=== PATIENT | male | born 1980 | race Caucasian/White ===

== ENCOUNTER 2017-06-07 08:09 | Emergency (ER) | payer MEDICAID ==
[~2017-06-07] VITALS: Ht 190.5 cm; Wt 147.0 kg
[~2017-06-07 08:09] MED LIST: ALLO100T PO; FAMO-1 PO; NAPR-56 PO
[2017-06-07 09:37] VITALS: BP 137/84
== END 2017-06-07 09:39 | disposition home or self-care (01) ==
LOC: ER 08:10
DX: M25.471 Effusion, right ankle (principal); M25.571 Pain in right ankle and joints of right foot; G62.9 Polyneuropathy, unspecified; I10 Essential (primary) hypertension; M19.90 Unspecified osteoarthritis, unspecified site; M10.9 Gout, unspecified; F12.10 Cannabis abuse, uncomplicated; F17.200 Nicotine dependence, unspecified, uncomplicated; Z88.5 Allergy status to narcotic agent; Z79.899 Other long term (current) drug therapy
CPT/HCPCS: 73610; 99284

== ENCOUNTER 2019-05-12 19:14 | Emergency (ER) | payer MEDICAID ==
[~2019-05-12] VITALS: Ht 190.5 cm; Wt 150.0 kg
[2019-05-12 20:14] LABS: BASOPHILS % (AUTO) 0.3 % (0-1); EOSINOPHILS # (AUTO) 0.4 X10'3 (0-0.9); EOSINOPHILS % (AUTO) 2.9 % (0-6); HEMATOCRIT 44.6 % (42.0-52.0); HEMOGLOBIN 15.6 g/dl (14.0-17.9); LYMPHOCYTES # (AUTO) 3.6 X10'3 (1.1-4.8); LYMPHOCYTES % (AUTO) 25.3 % (21-51); MEAN CORPUSCULAR HEMOGLOBIN 33.3 PG (27.0-31.0); MEAN PLATELET VOLUME 8.4 FL (7.4-10.4); MONOCYTES % (AUTO) 7.2 % (2-12); NEUTROPHILS # (AUTO) 9.2 X10'3 (1.8-7.7); NEUTROPHILS % (AUTO) 64.3 % (42-75); PLATELET COUNT 350 X10'3 (140-440); RED CELL DISTRIBUTION WIDTH 13.3 % (11.5-14.5); WHITE BLOOD COUNT 14.3 X10'3 (4.5-11.0)
[2019-05-12 20:35] LABS: ALANINE AMINOTRANSFERASE 29 U/L (12-78); ALBUMIN 3.7 G/DL (3.4-5.0); ALBUMIN/GLOBULIN RATIO 0.9 (1.1-1.5); ALKALINE PHOSPHATASE 57 IU/L (46-116); ANION GAP 5 (8-16); ASPARTATE AMINO TRANSFERASE 14 U/L (10-37); BILIRUBIN,TOTAL 0.5 MG/DL (0.1-1.0); BLOOD UREA NITROGEN 12 MG/DL (7-18); CALCIUM 8.9 MG/DL (8.5-10.1); CHLORIDE 106 MMOL/L (99-107); CREATININE 1.33 MG/DL (0.60-1.10); GLUCOSE 113 MG/DL (70-104); POTASSIUM 3.4 MMOL/L (3.5-5.1); SODIUM 141 MMOL/L (135-145); TOTAL CARBON DIOXIDE 29.7 MMOL/L (24-32); TOTAL PROTEIN 7.6 G/DL (6.4-8.2); eGFR 60 ML/MIN
[2019-05-12] MEDS ORDERED: azithromycin 250mg tablet PO ONE (22:20)
[2019-05-12] MEDS ORDERED: ALBU8.5H8 IH (22:20)
[2019-05-12] MEDS ORDERED: ibuprofen tablet 400 MG TABLET PO ONE (22:20)
[2019-05-12] MEDS ORDERED: AZIT250T PO (22:20)
[2019-05-12 22:36] VITALS: BP 145/79
== END 2019-05-12 22:37 | disposition home or self-care (01) ==
LOC: ER 19:17
DX: R07.89 Other chest pain (principal); R05 Cough; G62.9 Polyneuropathy, unspecified; I10 Essential (primary) hypertension; M19.90 Unspecified osteoarthritis, unspecified site; F41.9 Anxiety disorder, unspecified; F17.200 Nicotine dependence, unspecified, uncomplicated; F12.90 Cannabis use, unspecified, uncomplicated; F10.99 Alcohol use, unspecified with unspecified alcohol-induced disorder; Z88.5 Allergy status to narcotic agent; Z79.899 Other long term (current) drug therapy; Y90.9 Presence of alcohol in blood, level not specified
CPT/HCPCS: 36415; 71045; 80053; 84484; 85025; 93005; 99284

== ENCOUNTER 2019-07-22 13:40 | Inpatient (IN) | payer MEDICAID ==
[~2019-07-22] VITALS: Ht 188 cm; Wt 147.7 kg
[~2019-07-22 13:40] MED LIST changes: +ALBU8.5H8 IH
[2019-07-22] MEDS ORDERED: ringers solution, lactated 1000ml IV soln IV ONE (15:30)
[2019-07-22] MEDS ORDERED: CefTRIAXone/D5W-Rocephin 1gm 50 ML IV ONE (15:30)
[2019-07-22] MEDS ORDERED: vancomycin/NS 1 GM ADD-VANTAGE 250 ML IV ONE (15:30)
[2019-07-22] MEDS ORDERED: ketorolac trometh. 30mg/ml inj. IV ONE (15:35)
[2019-07-22 16:02] LABS: BASOPHILS # (AUTO) 0.1 X10'3 (0-0.2); BASOPHILS % (AUTO) 0.4 % (0-1); EOSINOPHILS % (AUTO) 0.1 % (0-6); HEMATOCRIT 40.2 % (42.0-52.0); HEMOGLOBIN 13.8 g/dl (14.0-17.9); LYMPHOCYTES # (AUTO) 1.3 X10'3 (1.1-4.8); LYMPHOCYTES % (AUTO) 8.5 % (21-51); MEAN CORPUSCULAR HEMOGLOBIN 31.7 PG (27.0-31.0); MEAN CORPUSCULAR HGB CONC 34.4 g/dL (33.0-36.5); MEAN CORPUSCULAR VOLUME 92.1 FL (78-98); MEAN PLATELET VOLUME 8.7 FL (7.4-10.4); MONOCYTES # (AUTO) 1.5 X10'3 (0-0.9); MONOCYTES % (AUTO) 9.5 % (2-12); NEUTROPHILS # (AUTO) 12.9 X10'3 (1.8-7.7); NEUTROPHILS % (AUTO) 81.5 % (42-75); PLATELET COUNT 389 X10'3 (140-440); RED BLOOD COUNT 4.36 X10'6 (4.70-6.10); RED CELL DISTRIBUTION WIDTH 14.8 % (11.5-14.5); WHITE BLOOD COUNT 15.8 X10'3 (4.5-11.0)
[2019-07-22 16:29] LABS: ALANINE AMINOTRANSFERASE 14 U/L (12-78); ALBUMIN 3.2 G/DL (3.4-5.0); ALBUMIN/GLOBULIN RATIO 0.6 (1.1-1.5); ALKALINE PHOSPHATASE 62 IU/L (46-116); ANION GAP 11 (8-16); ASPARTATE AMINO TRANSFERASE 18 U/L (10-37); BILIRUBIN,TOTAL 0.8 MG/DL (0.1-1.0); BLOOD UREA NITROGEN 15 MG/DL (7-18); BUN/CREATININE RATIO 12.3 (5.4-32.0); CALCIUM 9.8 MG/DL (8.5-10.1); CHLORIDE 102 MMOL/L (99-107); CREATINE KINASE 252 U/L (39-308); CREATININE 1.22 MG/DL (0.60-1.10); GLUCOSE 111 MG/DL (70-104); MAGNESIUM 1.7 MG/DL (1.5-2.4); POTASSIUM 3.7 MMOL/L (3.5-5.1); SODIUM 135 MMOL/L (135-145); TOTAL CARBON DIOXIDE 21.7 MMOL/L (24-32); TOTAL PROTEIN 8.4 G/DL (6.4-8.2); eGFR 66 ML/MIN
[2019-07-22 18:36] LABS: CLARITY,URINE CLEAR (Clear); COLOR,URINE YELLOW (Yellow); GLUCOSE, URINE NEGATIVE (Neg); KETONES,URINE 15 mg/dl (Neg); LEUKOCYTE ESTERASE ,URINE NEGATIVE (Neg); NITRITES, URINE NEGATIVE (Neg); OCCULT BLOOD,URINE NEGATIVE (Neg); PH,URINE 7.5 (4.8-8.0); PROTEIN,URINE TRACE mg/dl (Neg)
[2019-07-22 18:51] LABS: UA COLLECTION TYPE VOIDED
[2019-07-22 18:53] LABS: WBC,URINE 0-4 /HPF (0-4)
[2019-07-22 18:54] LABS: BACTERIA,URINE FEW /HPF (Neg); MUCUS STRANDS MODERATE /LPF (Neg); SQUAMOUS EPITHELIAL CELL,UR FEW /LPF (FEW)
[2019-07-22] MEDS ORDERED: mag hydrox/Alum hydrox/simeth 30ml oral suspension PO PRN (21:15)
[2019-07-22] MEDS ORDERED: magnesium hydroxide 30ml (MOM) UD suspension PO PRN (21:15)
[2019-07-22] MEDS ORDERED: methylPREDNISolone sod succ/PF 40mg inj. IV ONE (21:15)
[2019-07-22] MEDS ORDERED: ondansetron/PF 4mg/2ml inj IV PRN (21:15)
[2019-07-22] MEDS ORDERED: acetaminophen 325mg tablet PO PRN (21:15)
[2019-07-22] MEDS ORDERED: famotidine 20mg tablet PO ONE (21:20)
[2019-07-22] MEDS ORDERED: SULF500T59 PO (21:25)
[2019-07-22] MEDS ORDERED: PRE5T PO (21:25)
--- NOTE | 2019-07-22 23:10 | NUR ---
PT ARRIVED TO ROOM 4024B FROM ER. PT TRANSFERRED HIMSELF TO BED. VSS. PT HAS BEEN ORIENTED TO THE ROOM. RECEIVED REPORT FROM EDMUNDO SIFUENTES PRIOR TO PT'S ARRIVAL.
[2019-07-22 23:15] VITALS: BP 150/67
[2019-07-23 06:00] VITALS: BP 148/83
[2019-07-23 06:16] LABS: BASOPHILS % (AUTO) 0.2 % (0-1); EOSINOPHILS % (AUTO) 0 % (0-6); HEMATOCRIT 40.6 % (42.0-52.0); HEMOGLOBIN 13.7 g/dl (14.0-17.9); LYMPHOCYTES # (AUTO) 0.7 X10'3 (1.1-4.8); LYMPHOCYTES % (AUTO) 7.1 % (21-51); MEAN CORPUSCULAR HEMOGLOBIN 31.6 PG (27.0-31.0); MEAN CORPUSCULAR HGB CONC 33.7 g/dL (33.0-36.5); MEAN CORPUSCULAR VOLUME 93.9 FL (78-98); MEAN PLATELET VOLUME 8.7 FL (7.4-10.4); MONOCYTES # (AUTO) 0.4 X10'3 (0-0.9); MONOCYTES % (AUTO) 4.3 % (2-12); NEUTROPHILS # (AUTO) 8.2 X10'3 (1.8-7.7); NEUTROPHILS % (AUTO) 88.4 % (42-75); PLATELET COUNT 403 X10'3 (140-440); RED BLOOD COUNT 4.32 X10'6 (4.70-6.10); WHITE BLOOD COUNT 9.3 X10'3 (4.5-11.0)
[2019-07-23 06:24] LABS: ALANINE AMINOTRANSFERASE 14 U/L (12-78); ALBUMIN 2.9 G/DL (3.4-5.0); ALBUMIN/GLOBULIN RATIO 0.5 (1.1-1.5); ALKALINE PHOSPHATASE 65 IU/L (46-116); ANION GAP 8 (8-16); ASPARTATE AMINO TRANSFERASE 22 U/L (10-37); BILIRUBIN,TOTAL 0.5 MG/DL (0.1-1.0); BLOOD UREA NITROGEN 17 MG/DL (7-18); BUN/CREATININE RATIO 12.6 (5.4-32.0); CALCIUM 9.2 MG/DL (8.5-10.1); CHLORIDE 104 MMOL/L (99-107); CREATININE 1.35 MG/DL (0.60-1.10); GLUCOSE 150 MG/DL (70-104); POTASSIUM 4.1 MMOL/L (3.5-5.1); SODIUM 139 MMOL/L (135-145); TOTAL CARBON DIOXIDE 27.5 MMOL/L (24-32); TOTAL PROTEIN 8.2 G/DL (6.4-8.2); eGFR 59 ML/MIN
[2019-07-23] MEDS: CefTRIAXone/D5W-Rocephin 1gm 50 ML IV SCH (08:21)
[2019-07-23] MEDS: prednisone 10mg tablet PO SCH (08:21)
[2019-07-23] MEDS: heparin, porcine 5000 units/ml vial SQ SCH ×2 (08:23→19:21)
[2019-07-23 10:00] VITALS: BP 131/80
[2019-07-23] MEDS ORDERED: HYDROcodone/acetaminophen 10/325mg tab PO PRN (12:45)
[2019-07-23 14:16] LABS: APPEARANCE,SYNOVIAL FLUID CLOUDY; COLOR,SYNOVIAL FLUID YELLOW; CRYSTAL ID, SYN FLD URIC ACID; SYN RBC 1500 /CU MM (0); SYN WBC 33000 /CU MM (0-200); SYNOVIAL FLUID CRYSTALS QT MODERATE
[2019-07-23 18:00] VITALS: BP 137/72
[2019-07-23] MEDS: HYDROcodone/acetaminophen 10/325mg tab PO PRN ×2 (19:22→23:56)
[2019-07-23 22:00] VITALS: BP 121/66
[2019-07-23] MEDS ORDERED: VANCOMYCIN LEVEL IV ONE (23:30)
--- NOTE | 2019-07-24 00:27 | NUR ---
Notified pharmacy of the patient's vancomycin level (19.3) and was told to running the antibiotic.
[2019-07-24 06:00] VITALS: BP 116/65
[2019-07-24 06:19] LABS: BASOPHILS # (AUTO) 0.1 X10'3 (0-0.2); BASOPHILS % (AUTO) 0.6 % (0-1); EOSINOPHILS # (AUTO) 0.1 X10'3 (0-0.9); EOSINOPHILS % (AUTO) 1.5 % (0-6); HEMATOCRIT 38.1 % (42.0-52.0); HEMOGLOBIN 12.8 g/dl (14.0-17.9); LYMPHOCYTES # (AUTO) 2.9 X10'3 (1.1-4.8); LYMPHOCYTES % (AUTO) 30.2 % (21-51); MEAN CORPUSCULAR HEMOGLOBIN 31.6 PG (27.0-31.0); MEAN CORPUSCULAR HGB CONC 33.8 g/dL (33.0-36.5); MEAN CORPUSCULAR VOLUME 93.6 FL (78-98); MEAN PLATELET VOLUME 8.6 FL (7.4-10.4); MONOCYTES % (AUTO) 10.4 % (2-12); NEUTROPHILS # (AUTO) 5.5 X10'3 (1.8-7.7); NEUTROPHILS % (AUTO) 57.3 % (42-75); PLATELET COUNT 396 X10'3 (140-440); RED BLOOD COUNT 4.06 X10'6 (4.70-6.10); RED CELL DISTRIBUTION WIDTH 15.1 % (11.5-14.5); WHITE BLOOD COUNT 9.7 X10'3 (4.5-11.0)
[2019-07-24 06:26] LABS: ALANINE AMINOTRANSFERASE 24 U/L (12-78); ALBUMIN 2.6 G/DL (3.4-5.0); ALBUMIN/GLOBULIN RATIO 0.6 (1.1-1.5); ALKALINE PHOSPHATASE 58 IU/L (46-116); ANION GAP 8 (8-16); ASPARTATE AMINO TRANSFERASE 25 U/L (10-37); BILIRUBIN,TOTAL 0.1 MG/DL (0.1-1.0); BLOOD UREA NITROGEN 21 MG/DL (7-18); BUN/CREATININE RATIO 15.9 (5.4-32.0); CALCIUM 8.8 MG/DL (8.5-10.1); CHLORIDE 109 MMOL/L (99-107); CREATININE 1.32 MG/DL (0.60-1.10); GLUCOSE 116 MG/DL (70-104); POTASSIUM 3.7 MMOL/L (3.5-5.1); SODIUM 143 MMOL/L (135-145); TOTAL PROTEIN 7.2 G/DL (6.4-8.2); eGFR 60 ML/MIN
[2019-07-24] MEDS: HYDROcodone/acetaminophen 10/325mg tab PO PRN ×2 (06:52→16:28)
[2019-07-24] MEDS: prednisone 10mg tablet PO SCH (07:47)
[2019-07-24] MEDS: heparin, porcine 5000 units/ml vial SQ SCH ×2 (07:47→19:31)
[2019-07-24] MEDS: CefTRIAXone/D5W-Rocephin 1gm 50 ML IV SCH (07:49)
[2019-07-24 10:00] VITALS: BP 123/73
[2019-07-24 18:00] VITALS: BP 124/55
--- NOTE | 2019-07-24 18:05 | NUR ---
Problems reprioritized. Patient report given, questions answered & plan of care reviewed with Meeta WYATT.
[2019-07-24 22:00] VITALS: BP 126/76
[2019-07-24] MEDS: normal saline 1000ml 1,000 ML IV SCH (22:00)
[2019-07-25] MEDS: HYDROcodone/acetaminophen 10/325mg tab PO PRN ×2 (00:29→12:03)
[2019-07-25 05:53] LABS: BASOPHILS # (AUTO) 0.1 X10'3 (0-0.2); BASOPHILS % (AUTO) 0.9 % (0-1); EOSINOPHILS # (AUTO) 0.2 X10'3 (0-0.9); EOSINOPHILS % (AUTO) 2.8 % (0-6); HEMATOCRIT 38.1 % (42.0-52.0); HEMOGLOBIN 12.6 g/dl (14.0-17.9); LYMPHOCYTES # (AUTO) 3.2 X10'3 (1.1-4.8); LYMPHOCYTES % (AUTO) 42.6 % (21-51); MEAN CORPUSCULAR HEMOGLOBIN 31.3 PG (27.0-31.0); MEAN CORPUSCULAR HGB CONC 33.2 g/dL (33.0-36.5); MEAN CORPUSCULAR VOLUME 94.1 FL (78-98); MEAN PLATELET VOLUME 8.2 FL (7.4-10.4); MONOCYTES # (AUTO) 0.8 X10'3 (0-0.9); MONOCYTES % (AUTO) 10.8 % (2-12); NEUTROPHILS # (AUTO) 3.2 X10'3 (1.8-7.7); NEUTROPHILS % (AUTO) 42.9 % (42-75); PLATELET COUNT 422 X10'3 (140-440); RED BLOOD COUNT 4.04 X10'6 (4.70-6.10); RED CELL DISTRIBUTION WIDTH 14.7 % (11.5-14.5); WHITE BLOOD COUNT 7.5 X10'3 (4.5-11.0)
[2019-07-25 06:00] VITALS: BP 123/64
[2019-07-25 06:09] LABS: ALANINE AMINOTRANSFERASE 28 U/L (12-78); ALBUMIN 2.6 G/DL (3.4-5.0); ALBUMIN/GLOBULIN RATIO 0.6 (1.1-1.5); ALKALINE PHOSPHATASE 49 IU/L (46-116); ANION GAP 10 (8-16); ASPARTATE AMINO TRANSFERASE 23 U/L (10-37); BILIRUBIN,TOTAL 0.2 MG/DL (0.1-1.0); BLOOD UREA NITROGEN 18 MG/DL (7-18); BUN/CREATININE RATIO 15.9 (5.4-32.0); CALCIUM 8.7 MG/DL (8.5-10.1); CHLORIDE 108 MMOL/L (99-107); CREATININE 1.13 MG/DL (0.60-1.10); GLUCOSE 95 MG/DL (70-104); POTASSIUM 3.7 MMOL/L (3.5-5.1); SODIUM 143 MMOL/L (135-145); TOTAL CARBON DIOXIDE 25.1 MMOL/L (24-32); eGFR 72 ML/MIN
--- NOTE | 2019-07-25 06:34 | NUR ---
Problems reprioritized. Patient report given, questions answered & plan of care reviewed with EDMUNDO POWER.
[2019-07-25] MEDS: heparin, porcine 5000 units/ml vial SQ SCH (08:02)
[2019-07-25] MEDS: normal saline 1000ml 1,000 ML IV SCH (08:02)
[2019-07-25] MEDS: indomethacin 25mg capsule PO SCH ×2 (08:02→12:03)
[2019-07-25] MEDS ORDERED: predniSONE 5mg tablet PO SCH (08:30)
[2019-07-25 09:52] VITALS: BP 128/74
[2019-07-25] MEDS ORDERED: PRE5T PO (11:21)
[2019-07-25] MEDS ORDERED: INDO-12 PO (11:21)
[2019-07-25] MEDS ORDERED: ALLO100T PO (11:23)
--- NOTE | 2019-07-25 15:27 | NUR ---
Patient stable for discharge. Walker was arranged for patient to spanish moss picker. IV was discontinued, cannula intact. Belongings gathered.
== END 2019-07-25 13:58 | disposition home or self-care (01) | DRG 720 ==
LOC: ER 13:41 → ED HOLD 21:11 → UNDOADMIN 21:25 → CMPBEDREQ 23:00 → ED HOLD 23:01 → ORTHO 4S 23:01
PROVIDERS: ADMIT Internal Medicine; ATTEND Internal Medicine
PROC: 0S9C3ZZ Drainage of Right Knee Joint, Percutaneous Approach (ICD-10-PCS; principal; 2019-07-23)
DX: A41.9 Sepsis, unspecified organism (principal); N17.9 Acute kidney failure, unspecified; M06.00 Rheumatoid arthritis without rheumatoid factor, unspecified site; G89.29 Other chronic pain; F12.90 Cannabis use, unspecified, uncomplicated; M25.561 Pain in right knee; M10.061 Idiopathic gout, right knee; L29.9 Pruritus, unspecified; I10 Essential (primary) hypertension; F41.9 Anxiety disorder, unspecified; G62.9 Polyneuropathy, unspecified; Z88.1 Allergy status to other antibiotic agents; Z88.5 Allergy status to narcotic agent; Z87.891 Personal history of nicotine dependence
CPT/HCPCS: 36415; 71046; 76937; 80053; 80202; 81001; 82550; 83605; 83735; 84145; 84550; 85025; 87040; 87070; 87081; 87502; 87503; 89051; 89060; 93005; 97116; 97161; G0378; J0696; J1644; J1885; J2920; J3370; J7030; J7120; J7512

== ENCOUNTER 2021-02-11 16:43 | Emergency (ER) | payer MEDICAID, OTHER ==
[~2021-02-11] VITALS: Ht 190.5 cm; Wt 147.7 kg
[~2021-02-11 16:43] MED LIST changes: -ALBU8.5H8 IH; -ALLO100T PO; -FAMO-1 PO; +INDO-12 PO; -NAPR-56 PO; +PRE5T PO
[2021-02-11 16:46] VITALS: BP 174/105
[2021-02-11] MEDS ORDERED: TETanus/Pertussis (Acell)/Diphther VAC/PF (Tdap-Adult) 0.5ml syringe IMVAC ONE (16:50)
== END 2021-02-11 17:17 | disposition home or self-care (01) ==
LOC: EEVIPCON 16:44 → ER 16:44
DX: S81.832A Puncture wound without foreign body, left lower leg, initial encounter (principal); I10 Essential (primary) hypertension; F12.10 Cannabis abuse, uncomplicated; F14.10 Cocaine abuse, uncomplicated; Z88.2 Allergy status to sulfonamides; Z88.5 Allergy status to narcotic agent; W46.1XXA Contact with contaminated hypodermic needle, initial encounter; Y93.89 Activity, other specified; Y99.8 Other external cause status; Y92.89 Other specified places as the place of occurrence of the external cause
CPT/HCPCS: 90471; 90715; 99283

== ENCOUNTER → 2022-05-03 | Emergency (ER) | payer BC, MEDICAID ==
[~2022-05-03] VITALS: Ht 188 cm; Wt 131.8 kg
[2022-05-03 12:14] VITALS: BP 140/70
== END | disposition home or self-care (01) ==
LOC: ER 11:54
DX: Z13.89 Encounter for screening for other disorder (principal); I10 Essential (primary) hypertension; M19.90 Unspecified osteoarthritis, unspecified site; M10.9 Gout, unspecified; F41.9 Anxiety disorder, unspecified; Z88.5 Allergy status to narcotic agent; Z88.2 Allergy status to sulfonamides; Z79.899 Other long term (current) drug therapy
CPT/HCPCS: 99281